=== PATIENT | male | born 1980 | race African-American/Black ===

== ENCOUNTER 2021-07-20 15:49 | Emergency (ER) | payer MEDICAID ==
[~2021-07-20] VITALS: Ht 154.9 cm; Wt 84.0 kg
[2021-07-20 15:55] VITALS: BP 140/79
[2021-07-20] MEDS ORDERED: IBUPROFEN 400MG TABLET PO ONE (17:45)
[2021-07-20] MEDS ORDERED: ACETAMINOPHEN 325MG TABLET PO ONE (17:45)
[2021-07-20] MEDS ORDERED: LIDOCAINE 5% PATCH TOP SCH (17:45)
== END 2021-07-20 18:15 | disposition home or self-care (01) ==
LOC: ER 15:49
DX: M54.9 Dorsalgia, unspecified (principal); Z98.890 Other specified postprocedural states
CPT/HCPCS: 99283

== ENCOUNTER 2022-05-18 14:34 | Emergency (ER) | payer MEDICAID ==
[~2022-05-18] VITALS: Ht 177.8 cm; Wt 82.0 kg
[2022-05-18] MEDS ORDERED: KETOROLAC 60MG/2ML VIAL IM ONE (15:00)
[2022-05-18] MEDS ORDERED: METH-653 MT (15:19)
[2022-05-18] MEDS ORDERED: IBUP-2029 MT (15:19)
[2022-05-18 15:34] VITALS: BP 135/78
== END 2022-05-18 15:36 | disposition home or self-care (01) ==
LOC: ER 14:48
DX: M54.50 Low back pain, unspecified (principal); Z98.890 Other specified postprocedural states
CPT/HCPCS: 96372; 99283; J1885